=== PATIENT | male | born 1950 | race Caucasian/White ===

== ENCOUNTER 2018-06-18 15:40 | Inpatient (IN) | payer MEDICARE ==
[2018-06-18] MEDS ORDERED: NS 0.9% 1000 ML* 1,000 ML IV ONE (15:43)
--- NOTE | 2018-06-18 15:46 | ED ---
Neurological HPI - HPI Summary HPI Summary: This patient is a 68 year old M BIBA to [facility] with a chief complaint of 2-3 episodes of slurred speech with R hand weakness beginning at 23:00 last night. His most recent episode was at 14:00 today with resolution of right hand weakness but slurred speech persists. Patient is currently on blood thinners. PMHx of TIAs. - History of Current Complaint Stated Complaint: POSS STROKE Time Seen by Provider: 06/18/18 15:43 Hx Obtained From: Patient Onset/Duration: Started hours ago Timing: Intermittent Episodes Lasting: Onset Severity: Moderate Current Severity: Severe Neurological Deficit Location: RUE Character: Motor Weakness, Impaired Speech Number of Episodes: 3 Frequency: Episodes x___ - 3 Associated Signs and Symptoms: Positive: Weakness, Impaired Speech Related Hx: Coumadin - Allergy/Home Medications Allergies/Adverse Reactions: Allergies Allergy/AdvReac Type Severity Reaction Status Date / Time No Known Allergies Allergy Verified 06/18/18 16:12 Home Medications: Home Medications Aspirin EC TAB* [Ecotrin EC Low Dose 81 MG*] 81 mg PO DAILY 06/18/18 [History Confirmed 06/18/18] Atorvastatin Calcium [Lipitor] 40 mg PO DAILY 06/18/18 [History Confirmed ] Carvedilol TAB* [Coreg TAB*] 6.25 mg PO BID 06/18/18 [History Confirmed 06/18/18 ] Cholecalciferol (Vitamin D3) [Vitamin D3] 2,000 unit PO DAILY 06/18/18 [History Confirmed 06/18/18] Ezetimibe TAB* [Zetia TAB*] 10 mg PO DAILY 06/18/18 [History Confirmed 06/18/18] Fenofibrate(NF) [Tricor(NF)] 48 mg PO DAILY 06/18/18 [History Confirmed 06/18/18 ] Furosemide TAB* [Lasix TAB*] 40 mg PO BID 06/18/18 [History Confirmed 06/18/18] Insulin Glargine,Hum.rec.anlog [Lantus Solostar 5x3 ML PENS] 45 units SUBCUT DAILY 06/18/18 [History Confirmed 06/18/18] Isosorbide Mononitrate ER TAB* [Imdur ER TAB*] 30 mg PO DAILY 06/18/18 [History Confirmed 06/18/18] Sitagliptin Phosphate [Januvia] 50 mg PO DAILY 06/18/18 [History Confirmed 06/18] Warfarin Sodium 7.5 mg PO DAILY 06/18/18 [History Confirmed 06/18/18] hydrALAZINE TAB* [Apresoline TAB*] 25 mg PO BID 06/18/18 [History Confirmed 11/04] metOLazone [Metolazone] 2.5 mg PO DAILY 06/18/18 [History Confirmed 06/18/18] PMH/Surg Hx/FS Hx/Imm Hx Endocrine/Hematology History: Reports: Hx Anticoagulant Therapy Neurological History: Reports: Hx Transient Ischemic Attacks (TIA) Infectious Disease History: No - Family History Known Family History: Positive: Hypertension Review of Systems Negative: Fever Positive: Weakness - right hand, Slurred Speech All Other Systems Reviewed And Are Negative: Yes Physical Exam - Summary Physical Exam Summary: General: well-appearing, no pain distress Skin: warm, color reflects adequate perfusion, dry Head: normal Eyes: EOMI, URI ENT: normal Neck: supple, nontender Respiratory: CTA, breath sounds present Cardiovascular: RRR Abdomen: soft, nontender Bowel: present Musculoskeletal: normal, strength/ROM intact Neurological: sensory/motor intact, A&O x3, slurred speech, no other focal neurological deficits Psychological: affect/mood appropriate Triage Information Reviewed: Yes Vital Signs Reviewed: Yes - Timo Coma Scale Best Eye Response: 4 - Spontaneous Best Motor Response: 6 - Obeys Commands Best Verbal Response: 5 - Oriented Coma Scale Total: 15 Diagnostics - Laboratory Result Diagrams: 06/18/18 15:57 06/18/18 15:57 Lab Statement: Any lab studies that have been ordered have been reviewed, and results considered in the medical decision making process. - Radiology CXR Radiology Interpretation Completed By: Radiologist - Cardiomegaly without evidence for pulmonary edema or other acute intrathoracic process. ED Physician has reviewed this report. - CT Brain CT CT Interpretation Completed By: Radiologist - #. Intra-axial acute or subacute hematoma at the LEFT frontal lobe with mild regional mass effect without subfalcine or downward herniation. #. Old infarct involving the RIGHT middle cerebral artery distribution. #. Chronic small vessel ischemic disease. #. Involutional change. #. Results discussed with Dr. Joiner 06/18/2018 3:58 PM EDT ED Physician has reviewed this report. 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: Both Correctly Best Gaze (Only Horizontal Eye Movement): Normal Visual Field Testing: No Visual Loss Facial Paresis-Pt to Smile & Close Eyes or Grimace Symmetry: Normal/Symmetrical Motor Function - Right Arm: No Drift-Holds 10 Seconds Motor Function - Left Arm: No Drift-Holds 10 Seconds Motor Function - Right Leg: No Drift-Holds 10 Seconds Motor Function - Left Leg: No Drift-Holds 10 Seconds Limb Ataxia-Must be out of Proportion to Weakness Present: Absent Sensory (Use Pinprick to Test Arms/Legs/Trunk/Face): Normal Best Language (Describe Picture, Name Items): No Aphasia Dysarthria (Read Several Words): Slurs Some Words Extinction and Inattention: No Abnormality Total Score: 1 Course/Dx - Course Course Of Treatment: DISCUSSED WITH DR SELLERS, NEUROLOGY, AND NEUROSURGERY, DR FOWLER. COUMADIN REVERSED. ADMIT HOSPITALIST. - Diagnoses Provider Diagnoses: Hemorrhagic stroke During the Visit The Following Alert/Code Occurred: Code [place]appas - at 1543 - Physician Notifications Discussed Care Of Patient With: Hung Sellers - neurolgoy Time Discussed With Above Provider: 16:12 Instructed by Provider To: Other - recommends consult with Dr. Fowler. He will see in ED. At 1645, after evaluation. Dr. Sellers recommends MRA of the Head and a Head CT with and without contrast. - Critical Care Time Critical Care Time: 30-74 min Discharge - Sign-Out/Discharge Documenting (check all that apply): Patient Departure All imaging exams completed and their final reports reviewed: Yes - Discharge Plan Condition: Guarded Disposition: ADMITTED TO [facility] - Billing Disposition and Condition Condition: GUARDED Disposition: Admitted to [facility] - Attestation Statements Document Initiated by Scribe: Yes Documenting Scribe: Shabnam Kasper Provider For Whom Scribe is Documenting (Include Credential): Omar Joiner Scribe Attestation: Shabnam Monzon, scribed for Omar Joiner on 06/18/18 at 1902. Scribe Documentation Reviewed: Yes Provider Attestation: The documentation as recorded by the scribe, Shabnam Kasper accurately reflects the service I personally performed and the decisions made by me, Omar Joiner Consult Consult: At 17:00 Dr. Fowler, neurosurgery, recommends admission by hospitalist. At 17:40 Dr. Sandoval, hospitalist, agrees to admit.
--- NOTE | 2018-06-18 15:59 | RAD ---
Indication: RIGHT side facial droop /weakness. Few episodes in past 24 hours. Comparison: No relevant prior exams available on the [facility] PACS for comparison. Technique: Noncontrast CT vertex of skull through foramen magnum. Report: 2.4 x 2.3 cm hyperdense intra-axial hematoma at the posterior LEFT frontal lobe waters matter white matter junction with mild surrounding white matter edema and localized sulcal effacement. Negative for additional intra-axial or extra-axial hemorrhage. Large region of encephalomalacia at the posterior RIGHT temporal lobe extending into the posterior RIGHT frontal and parietal lobes. Decreased density in the periventricular and subcortical white matter while non-specific is most likely due to chronic microangiopathy. Generalized moderate prominence of the cerebral sulci reflecting atrophy. Unremarkable ventricles and basal cisterns. Negative for midline shift. Unremarkable visualized orbital contents. No suspicious calvarial or skull base lesion evident. Clear visualized paranasal sinuses and mastoid air spaces. Negative for scalp hematoma. IMPRESSION: #. Intra-axial acute or subacute hematoma at the LEFT frontal lobe with mild regional mass effect without subfalcine or downward herniation. #. Old infarct involving the RIGHT middle cerebral artery distribution. #. Chronic small vessel ischemic disease. #. Involutional change. #. Results discussed with Dr. Joiner 06/18/2018 3:58 PM EDT
[2018-06-18 16:08] LABS: ABS Basophils 0.1 10^3/ul (0-0.2); ABS Eosinophils 0.6 10^3/ul (0-0.6); ABS Lymphocytes 1.3 10^3/ul (1.0-4.8); ABS Monocytes 0.9 10^3/ul (0-0.8); ABS Neutrophils 9.9 10^3/ul (1.5-7.7); ABS Nucleated RBC 0 10^3/ul; Eosinophil % 4.6 % (0-6); Hematocrit 35 % (42-52); Hemoglobin 12.2 g/dl (14.0-18.0); Lymphocyte % 9.8 % (25-47); Mean Corpuscular HGB Conc 34 g/dl (31-36); Mean Corpuscular Hemoglobin 30 pg (27-31); Mean Corpuscular Volume 88 fL (80-94); Mean Platelet Volume 10.1 um3 (7.4-10.4); Nucleated Red Blood Cells % 0; Platelet Count 182 10^3/ul (150-450); Red Blood Count 4.03 10^6/ul (4.00-5.40); Red Cell Distribution Width 15 % (10.5-15); White Blood Count 12.7 10^3/ul (3.5-10.8)
[2018-06-18 16:12] LABS: INR 1.91 (0.77-1.02)
[2018-06-18] MEDS ORDERED: Phytonadione IV (Adult)* 10 MG in NS 0.9% 50 ML* 50 ML IV ONE (16:19)
[2018-06-18 16:24] LABS: EGFR Non-African American 17.7 (>60)
[2018-06-18] MEDS ORDERED: levETIRAcetam IV* 500 MG in NS 0.9% 100 ML* 100 ML IVPB ONE (16:45)
[2018-06-18] MEDS: NS 0.9% 1000 ML* 1,000 ML IV SCH ×3 (16:46→22:21)
--- NOTE | 2018-06-18 16:46 | RAD ---
Indication: Neurologic changes. Code waters. Comparison: No relevant prior exams available on the [facility] PACS for comparison. Technique: Upright AP 1613 hours Report: Mild prominence of the interstitial markings. No focal pulmonary lesion, pulmonary infiltrate, pleural effusion, or pneumothorax. Cardiomegaly. Unremarkable central pulmonary vasculature and mediastinal contours. Healed RIGHT eighth rib fracture posteriorly. IMPRESSION: #. Cardiomegaly without evidence for pulmonary edema or other acute intrathoracic process.
[2018-06-18] MEDS ORDERED: Nicotine Inhaler* 10 MG AMP INH PRN (18:24)
--- NOTE | 2018-06-18 18:29 | CONS ---
CONSULTATION REPORT: DATE OF CONSULT: 06/18/18 PATIENT OF: Dr. 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 SOURCE OF INFORMATION: We have limited records here and the history is from the ED provider and we are in the process of getting outside records if possible today. HISTORY OF PRESENT ILLNESS: This is a 68-year-old right-handed man, who notes that in the past 2 weeks or so he has had some stiffness in his right hand mainly the first 3 fingers and last night he developed some weakness and clumsiness in the right hand and then has had speech problems since then that have been fluctuating, but persisting with worsening right hand weakness. He is not worse this afternoon than this morning. He has had a past history of stroke also with right-sided symptoms, not left-sided symptoms apparently and this was thought to be due to atrial dilatation. He has been on Coumadin. He did not think he had atrial fibrillation, but we do not have the old chart. He has a history of hypertension, elevated cholesterol. He is on an antihypertensive, he does not know the name. He is on Lipitor and he is on Coumadin. Of note, he has smoked for many years initially 2 packs a day and more recently he did not remember when the switch was. He is now smoking 1 pack a day. He has had no staring spells or confusion with this. He has had some minor word-finding difficulty, but the main problem is some slurring of his speech. PAST SURGICAL HISTORY: He has had no surgeries. ALLERGIES: He has no known allergies. FAMILY HISTORY: Noncontributory. SOCIAL HISTORY: He also smokes marijuana on occasion. REVIEW OF SYSTEMS: Review of systems is negative in all 14 spheres other than HPI. PHYSICAL EXAM: 112/93, pulse was 65, respirations 20. Fever was not documented. On exam, he was alert and oriented. He spoke in complete sentences and can name objects. Occasionally, he hesitated for words. His speech was somewhat slurred. He was oriented x3. Cranial nerves II through XII showed a mild right facial weakness, otherwise intact. Discs were sharp. Motor exam revealed trace weakness in the right upper extremity, full strength in the right lower extremity, full strength on the left side. He had a right pronator drift. He had some clumsiness on the left side. Sensation decreased on the right side to touch. He had no right field cut. Chest: Clear. Cardiovascular: Regular rate and rhythm. Abdomen is soft with positive bowel sounds. DIAGNOSTIC STUDIES/LAB DATA: I reviewed his CT scan, which showed a left frontal lobe acute or subacute hemorrhage. It appeared to be spherical with some homogeneity to it. There is some mild mass effect, but no herniation or midline shift. He also had white matter disease in the area in his parietal lobe with hypodensity extending to the cortex. He has had some mild atrophy. Labs are pending at this point. He has had no staring spells or any seizures. IMPRESSION AND PLAN: Discussed with Mr. Dong and Dr. Joiner that he sustained a left frontal hemorrhage, which could totally be from his being on Coumadin. It was apparently a fall, but it sounds like he was symptomatic before that and it also sounds like this may have dated back a couple of weeks because his fingers were stiff and changed before his other symptoms. I have recommended an MRI scan with and without contrast because his lesion is spherical, so this could have been even bleeding into a tumor and there is an area on the other side, which could be due to white matter disease, but instead it could also be due to a tumor without hemorrhage, but with some surrounding edema that may be seen best on MRI scan with contrast. The heterogeneity in the cervical area could instead be secondary to an arteriovenous malformation, so we will be getting an MRA with that. More acutely, his Coumadin is being reversed by Dr. Joiner and his beginning on Keppra 500 twice a day even though there have been no seizures, he is at risk of seizures from this lesion acutely and so we will have him on Keppra. Most importantly, there has been a page already in to Dr. Gaming and Dr. Gaming will make a decision whether he feels neurosurgically it is appropriate to keep him here to the ICU or transfer him at this point. The lesion is not large. I defer to Dr. Gaming in terms of when the next CAT scan will be, but one should be done at least by tomorrow if he stays here. Thank you for sharing his case. [id number]/[facility] #: [id number] [facility] MEDICAL CENTERDianna
[2018-06-18] MEDS ORDERED: levETIRAcetam 500 MG IVPREMIX* 500 MG/100 ML BAG IVPB ONE (19:00)
[2018-06-18] MEDS: levETIRAcetam 500 MG IVPREMIX* 500 MG/100 ML BAG IV SCH (19:38)
[2018-06-18] MEDS ORDERED: hydrALAZINE IV* 20 MG/ML VIAL IV SLOW PU PRN (19:40)
[2018-06-18] MEDS: Mouth Piece, Nicotine* 1 EACH CARTRIDGE INH PRN (19:42)
[2018-06-18] MEDS ORDERED: Dextrose 50% Syringe 50 ML* 25 GM/50 ML SYRINGE IV PUSH PRN (19:48)
--- NOTE | 2018-06-18 20:40 | RAD ---
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 Pt is uncomfortable in scanner, best attempt to get pt comfortable and to limit motion on scans Facility exam id and description: Mr mrahead wo mra head w/o TECHNIQUE: Magnetic resonance angiography images of the head without intravenous contrast. COMPARISON: No relevant prior studies available. FINDINGS: Right internal carotid artery: There is non-visualization of the right internal carotid artery, consistent with occlusion. No aneurysm. 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 No occlusion or significant stenosis. No aneurysm. Right middle cerebral artery: There is significant decreased signal intensity involving the right middle cerebral artery, consistent with decreased blood flow. No occlusion. No aneurysm. Right posterior cerebral artery: There is mild stenosis of the right posterior cerebral artery. There is focal ectasia or aneurysmal dilatation at the junction of the right P1 and P2 segments. This measures 0.3 cm in diameter. Right vertebral artery: There is non-visualization of the distal right vertebral artery, consistent with occlusion. Left internal carotid artery: No acute findings. Intracranial segment is patent with no significant stenosis. No aneurysm. Left anterior cerebral artery: No occlusion or significant stenosis. No aneurysm. Left middle cerebral artery: No occlusion or significant stenosis. No aneurysm. Left posterior cerebral artery: No occlusion or significant stenosis. No aneurysm. Left vertebral artery: No occlusion or significant stenosis. Basilar artery: No occlusion or significant stenosis. No aneurysm. IMPRESSION: 1. 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 2. There is non-visualization of the distal right vertebral artery, consistent with occlusion. 3. There is mild stenosis of the right posterior cerebral artery. There is focal ectasia or aneurysmal dilatation at the junction of the right P1 and P2 segments. This measures 0.3 cm in diameter. 4. There is significant decreased signal intensity involving the right middle cerebral artery, consistent with decreased blood flow. 5. 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
--- NOTE | 2018-06-18 20:59 | RAD ---
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 COMPARISON: A comparison is made to a CT head report from 06/18/18. No prior images are available for review. FINDINGS: Artifacts: Motion artifact limits this study. Motion artifact limits evaluation of the orbits. Brain: Within the left frontoparietal region, there is a mass of heterogeneous T2 signal intensity measuring 2.5 x 2.4 x 2.6 cm. This demonstrates magnetic susceptibility and is consistent with hematoma described on the recent head CT. There is mild surrounding edema. Additional hemorrhagic pathology cannot be excluded. There is a restricted diffusion are associated with this hematoma. There is mass effect on the adjacent sulci. T2 hyperintense encephalomalacia with adjacent FLAIR hyperintense gliosis are identified within the right posterior parietal and temporal lobes, consistent with an old infarct. A cavum septum pellucidum variant is identified. Additional magnetic susceptibility hemosiderin is identified within the right posterior parietal, posterior temporal and occipital lobes in the area of old infarction. Additional small chronic infarcts are visualized seen within the right parietal and occipital lobes. There are multiple additional foci of high FLAIR signal intensity within the cerebral white matter. There is no mass effect or restricted diffusion associated with these foci. In a patient this age, this likely represents chronic small vessel ischemic disease. Ventricles: There is mild prominence of the ventricles and remaining sulci, compatible with atrophy. Bones/joints: No acute abnormality. Sinuses: A small mucous retention cyst or polyp is visualized within the right maxillary sinus, with minimal mucosal thickening. There is mild polypoid mucosal thickening in the right posterior ethmoid air cell. Mastoid air cells: Mild mucosal thickening/effusions are visualized within the right mastoid air cells. Orbits: There is mild left proptosis. Internal carotid arteries: There is loss of normal flow void within the distal right vertebral and right internal carotid arteries, consistent with occlusion when correlated with the MRA from the same day. IMPRESSION: 1. Within the left frontoparietal region, there is a hematoma or hemorrhagic mass, with mild surrounding edema. There is mass effect on the adjacent sulci. This can be further evaluated with post contrast sequences. 2. Encephalomalacia with adjacent gliosis are identified within the right posterior parietal and temporal lobes, consistent with an old infarct. Additional small chronic infarcts are visualized seen within the right parietal and occipital lobes. 3. Mild atrophy. 4. Additional magnetic susceptibility hemosiderin is identified within the right posterior parietal, posterior temporal and occipital lobes in the area of old infarction. 5. There is loss of normal flow void within the distal right vertebral and right internal carotid arteries, consistent with occlusion when correlated with the MRA from the same day. 6. There are multiple additional foci of high FLAIR signal intensity within the cerebral white matter. In a patient this age, this likely represents chronic small vessel ischemic disease. 7. Additional findings described above.
[2018-06-18] MEDS ORDERED: Carvedilol TAB* 6.25 MG PO SCH (21:00)
[2018-06-18] MEDS ORDERED: Furosemide TAB* 40 MG PO SCH (21:00)
[2018-06-18] MEDS: hydrALAZINE TAB* 25 MG PO SCH (21:35)
[2018-06-18] MEDS: Nicotine PATCH 21 MG/24 HR* PATCH TRANSDERM SCH (21:35)
[2018-06-18 21:50] LABS: INR 1.18 (0.77-1.02)
--- NOTE | 2018-06-18 23:30 | HP ---
CC: Dr. Guadalupe with [facility] in [place]; Dr. Hung Sellers * HISTORY AND PHYSICAL: DATE OF ADMISSION: 06/18/18 PRIMARY CARE PROVIDER: Dr. Guadalupe, with [facility] in [place]. ATTENDING PHYSICIAN: Karla Sandoval DO * (dictated by Edna Cooper, AMANDA) CHIEF COMPLAINT: Slurred speech, right-sided weakness. HISTORY OF PRESENT ILLNESS: Mr. Dong is a 68-year-old male with past medical history significant for TIA, diabetes, chronic kidney disease, AAA, NSTEMI, peripheral vascular disease, atrial fibrillation, chronic combined systolic, diastolic CHF, coronary artery disease, bladder cancer, hypertension, hyperlipidemia, NINA with BiPAP, cardiomyopathy, and pulmonary hypertension who states that he has been in his usual state of health with the exception of noting slurred speech last evening in addition to right-sided weakness. The patient's right-sided weakness resolved and he continued to have slurred speech. Last night, he was resistant to coming to the ER, but today his was able to convince him to come to the ER for further evaluation. He denies any recent fevers, chills, chest pain, shortness of breath, nausea, vomiting, diarrhea, lightheadedness, dizziness, headaches, urinary symptoms. The patient is on warfarin, he states he is unware of a history of AFib, but according to the problem list that his has from [place], he does have a history of AFib. Due to his symptoms, he presented to the emergency room for further evaluation. While in the emergency room, the patient had labs remarkable for an EKG showing AFlutter, LVH, rate 63, there is no acute signs of ischemia, there are no previous EKGs for comparison. Chest x-ray showing no acute findings. He had a brain CT with read as follows "intra-axonal acute or subacute hematoma at the left frontal lobe with mild regional mass effect without subfalcine or downward herniation. 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 Chronic small vessel ischemic disease. Involutional change". Due to the finding of a brain bleed, he received vitamin K and Kcentra in the ER. He was also seen in consultation by Dr. Sellers with neurology who recommended an MRI, starting him on Keppra for seizure prophylaxis as he is at an increased risk for seizures. He also recommended discussing the case with Neurosurgery, Dr. Gaming as the area on CT imaging could represent a lesion. The patient continued to have some difficulties with the speech while in the emergency room. Dr. Gaming was contacted by the ED provider who recommended that that patient be admitted by the hospitalists. The hospitalists were asked to evaluate the patient for admission. PAST MEDICAL HISTORY: 1. TIA. 2. Diabetes mellitus. 3. Chronic kidney disease, stage 3. 4. AAA. 5. NSTEMI. 6. Peripheral vascular disease. 7. Atrial fibrillation. 8. Combined chronic systolic/diastolic congestive heart failure. 9. Coronary artery disease. 10. Bladder cancer. 11. Hypertension. 12. Hyperlipidemia. 13. Obstructive sleep apnea with BiPAP. 14. Cardiomyopathy. 15. Pulmonary hypertension. PAST SURGICAL HISTORY: Status post transurethral bladder resection. MEDICATIONS: Home medications include: 1. Lantus 45 units subcutaneous daily. 2. Vitamin D3 2000 units oral daily. 3. TriCor 48 mg oral daily. 4. Aspirin 81 mg daily. 7. Atorvastatin 40 mg oral daily. 8. Furosemide 40 mg oral twice daily. 9. Imdur 30 mg oral daily. 10. Carvedilol 6.25 mg oral daily. 11. Januvia 50 mg oral daily. 12. Metolazone 2.5 mg oral daily. 13. Hydralazine 25 mg oral twice daily. 14. Warfarin 7.5 mg oral daily. 15. Zetia 10 mg oral daily. ALLERGIES: No known drug allergies. FAMILY HISTORY: The patient denies any family history of coronary artery disease or cancer. He has a sister and a nephew with a history of diabetes mellitus. SOCIAL HISTORY: He is a current smoker, smoking one and a half packs a day. He smoked since age 12 and smoked up to 2 packs a day. He drinks alcohol twice weekly. He occasionally smokes marijuana. He lives with his . His , Marlin Dong, will be his surrogate decision maker in the event he is unable to make decisions for himself. REVIEW OF SYSTEMS: I performed an 11-point review of systems. All the pertinent positives and negatives are mentioned in the history of present illness. The remaining review of systems is negative. PHYSICAL EXAMINATION GENERAL APPEARANCE: The patient is alert, pleasant, appears to be in no acute distress. VITAL SIGNS: Temperature 98.7, heart rate 72, respiratory rate 23, O2 sat 95% on room air, blood pressure 153/83. HEENT: Normocephalic, atraumatic. Pupils are equal and reactive to light. Extraocular movements are intact. RESPIRATORY: There is no accessory muscle use. The lungs are clear to auscultation, bilateral. CARDIOVASCULAR: Regular rate and rhythm. S1, S2 present. There are no murmurs , rubs, or gallops heard. ABDOMEN: Soft, nontender, nondistended. Bowel sounds present x4. EXTREMITIES: No lower extremity edema. DP and PT pulses are 2+ and symmetric. NEUROLOGICAL: The patient is alert and oriented x4. Cranial nerves II through XII are grossly intact. He has mild slurred speech. Equal hand snailer. Equal dorsi and plantar flexion bilateral. Smile is symmetric and tongue is midline. He is able to perform heel from ankle to knee bilateral without difficulty and finger to nose bilateral without difficulty. PSYCHOLOGICAL: The patient is calm and cooperative. SKIN: There are no rashes or abnormalities seen. DIAGNOSTIC STUDIES/LAB DATA: Sodium 138, potassium 3.3, chloride 95, CO2 of 32 , BUN 58, creatinine 3.46, glucose 231. White blood cell count 12.7, hemoglobin 12.3, hematocrit 35, platelet count 182. EKG shows an atrial fibrillation, LVH with a rate of 63, there are no acute signs of ischemia, there are no previous EKGs for comparison. Chest x-ray from today. Radiologist's impression, cardiology without evidence for pulmonary edema or intrathoracic process. Brain CT from today. Radiologist's impression, intra-axonal acute or subacute hematoma at the left frontal lobe with mild regional mass effect without subfalcine or downward herniation. 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 Chronic small vessel ischemic disease. Involutional change. IMPRESSION: Mr. Dong is a 68-year-old male with past medical history significant for TIA; diabetes; chronic kidney disease, stage 3; abdominal aortic aneurysm; NSTEMI; PVD; atrial fibrillation; combined systolic, diastolic CHF; CAD; bladder cancer; hypertension; hyperlipidemia; NINA with BiPAP; cardiomyopathy; pulmonary hypertension, who presents to the emergency room with complaints of slurred speech, right-sided weakness. He was found to have a brain bleed on CT. He will be admitted as an inpatient to the ICU for a brain bleed. ASSESSMENT AND PLAN: 1. Brain bleed. Suspected hemorrhagic cerebrovascular accident vs hemorrhage into a lesion. The patient has evidence of an "acute or subacute hematoma at the left frontal lobe with mild regional mass effect without subfalcine or downward herniation" seen on brain CT today. He has already been seen in consultation by Neurology who recommends he have an MRI and MRA of his head. Additionally, the ER has been in contact with Dr. Gaming, who recommends he be admitted. He will be monitored in ICU, with neuro checks q.2 hours. He has been placed on Keppra per Neurology for seizure prophylaxis. Neurosurgery will see the patient in consultation. We will attempt to keep his systolic blood pressures less than 165. He will be continued on his routine BP medications with hydralazine IV as needed. He will have PT/OT consult. We will keep his head of bed at 30 degrees and keep him NPO for now. He will need a swallow eval prior to having food. At this time his only neurological deficits are slurred speech. I will hold off on an echo at this time. He received Vit K and Kcentra while in the ED, I will recheck an INR. We will continue to give Vit K until his INR near 1. 2. Elevated troponin. The patient denies any chest pain. I suspect demand ischemia in the setting of a brain bleed. I am unsure what his baseline is troponin is in the setting of CKD. We are going to trend his troponins, and monitor him on telemetry. He has no ischemic changes on EKG. He may benefit from a cardiac stress test once he recovers from the brain bleed. 3. Diabetes mellitus. We will get a hemoglobin A1c. I will continue him on Lantus on a decreased dose as he is going to be NPO overnight, until he can have a swallow eval. We will place him on a lispro sliding scale and hold his home oral agents. 4. Chronic combined diastolic, systolic heart failure. No signs of an acute exacerbation at this time. He will be continued on carvedilol. I am going to hold his furosemide and metolazone and recheck his creatinine in the AM. He will have strict I+O's and daily weights. 5. Coronary artery disease. Denies chest pain at this time. He will be continued on his home Imdur, carvedilol, atorvastatin, Zetia, and TriCor. We are going to hold his aspirin in the setting of a brain bleed. 6. Chronic kidney disease, suspect acute on chronic kidney injury. According to the [place] records, he has stage 3 at baseline. I suspect his creatinine may be elevated. We will recheck his labs in the morning, adjust medications accordingly. Avoid nephrotoxic agents. I am going to hold his furosemide and metolazone. 7. Hypertension. The patient will be continued on his home Imdur, and Coreg. We will hold his diuretics in the setting of an elevated creatinine. He will have hydralazine IV as needed for SBP greater than 165. 8. Obstructive sleep apnea. He will be continued on his home BiPAP. 9. Cardiomyopathy. The patient will be continued on his home medication regimen. 10. Tobacco abuse disorder. He has been encouraged to stop smoking. We will provide him with Nicotine replacement. 11. Fluids, electrolytes, and nutrition. The patient will be on n.p.o. until he is able to do a swallow eval. 12. Code status. Full code. 13. DVT prophylaxis. He will have SCDs. He will have no chemical DVT prophylaxis in the setting of a brain bleed. 14. Disposition. Inpatient. TIME SPENT: Time for this admission was approximately 60 minutes, greater than half of that was spent with the patient discussing medications, past medical history, the events leading up to his arrival today, performing a physical examination. The case has been reviewed with the attending, Dr. Sandoval, who agrees with the plan of care. Reviewed by ALKA LUNA 06/19/18 1950 [id number]/[facility] #: [id number] EDA
[2018-06-19] MEDS: NS 0.9% 1000 ML* 1,000 ML IV SCH ×2 (04:22→21:36)
[2018-06-19 05:19] LABS: Hematocrit 31 % (42-52); Hemoglobin 10.6 g/dl (14.0-18.0); Mean Corpuscular HGB Conc 34 g/dl (31-36); Mean Corpuscular Hemoglobin 31 pg (27-31); Mean Corpuscular Volume 90 fL (80-94); Platelet Count 124 10^3/ul (150-450); Red Blood Count 3.46 10^6/ul (4.00-5.40); Red Cell Distribution Width 15 % (10.5-15); White Blood Count 10.3 10^3/ul (3.5-10.8)
[2018-06-19 05:24] LABS: INR 1.1 (0.77-1.02)
[2018-06-19 05:29] LABS: ABS Basophils 0.1 10^3/ul (0-0.2); ABS Eosinophils 0.6 10^3/ul (0-0.6); ABS Lymphocytes 1.4 10^3/ul (1.0-4.8); ABS Monocytes 0.8 10^3/ul (0-0.8); ABS Neutrophils 7.5 10^3/ul (1.5-7.7); ABS Nucleated RBC 0 10^3/ul; Eosinophil % 5.6 % (0-6); Lymphocyte % 13.5 % (25-47); Nucleated Red Blood Cells % 0
[2018-06-19 05:35] LABS: EGFR Non-African American 19.5 (>60)
[2018-06-19] MEDS: Insulin LISPRO* 1 UNITS UNIT SUBCUT SCH ×3 (07:30→18:26)
[2018-06-19] MEDS ORDERED: Insulin GLARGINE(*) 1 UNITS UNIT SUBCUT SCH (08:00)
--- NOTE | 2018-06-19 08:34 | RAD ---
INDICATION: Evaluate intraparenchymal hemorrhage. COMPARISON: CT the brain June 18, 2018 that shows a focus of hemorrhage at the left parietal lobe. TECHNIQUE: Contiguous axial sections of the brain were obtained from the skull base to the vertex without contrast. FINDINGS: The ventricles, cisterns and sulci are within normal limits. Again seen is a hyperattenuating focus at the left parietal lobe measuring 2.4 x 2.6 cm in the axial plane unchanged from the previous CT examination. There is no significant mass effect. There is a stable area of encephalomalacia at the right temporal lobe. There is mild periventricular and subcortical white matter hypoattenuation most consistent with chronic microvascular disease. No significant focal osseous abnormality is present. The visualized portion of the paranasal sinuses appear clear. The mastoid air cells are well aerated bilaterally. IMPRESSION: Stable focus of intraparenchymal hemorrhage at the left parietal lobe not significantly changed since the previous head CT acquired June 18, 2018.
--- NOTE | 2018-06-19 08:50 | PN ---
Subjective Date of Service: 06/19/18 Interval History: Patient states that his speech is still a little slurred but better than yesterday. No other neuro sx's. No other c/o. Objective Active Medications: Atorvastatin Calcium (Lipitor*) 40 mg PO DAILY [facility] Device (Nicotine Mouth Piece*) 1 each INH .USE WITH NICOTROL PRN PRN Reason: CRAVING Last Admin: 06/18/18 19:42 Dose: 1 each Dextrose (D50w Syringe 50 Ml*) 12.5 gm IV PUSH .FOR FS < 60 - SS PRN PRN Reason: FS < 60 Ezetimibe (Zetia Tab*) 10 mg PO DAILY [facility] Fenofibrate (Tricor(Nf)) 48 mg PO DAILY [facility] Hydralazine HCl (Apresoline Iv*) 5 mg IV SLOW PU Q6H PRN PRN Reason: Systolic Bp Greater Than: 165 Hydralazine HCl (Apresoline Tab*) 25 mg PO BID [facility] Last Admin: 06/18/18 21:35 Dose: 25 mg Levetiracetam (Keppra Iv Premix*) 500 mg in 100 mls @ 400 mls/hr IV Q12H [facility] Last Admin: 06/18/18 19:38 Dose: 400 mls/hr Sodium Chloride (Ns 0.9% 1000 Ml*) 1,000 mls @ 60 mls/hr IV .PER RATE [facility] Last Admin: 06/19/18 04:22 Dose: 60 mls/hr Insulin Glargine (Lantus(*)) 20 units SUBCUT Q24H [facility] Insulin Human Lispro (Humalog*) 0 - 10 units SUBCUT AC [facility]; Protocol Isosorbide Mononitrate (Imdur Er Tab*) 30 mg PO DAILY [facility] Nicotine (Nicotine Inhaler*) 10 mg INH Q2H PRN PRN Reason: CRAVING Last Admin: 06/18/18 19:42 Dose: 10 mg Nicotine (Nicotine Patch 21 Mg/24 Hr*) 1 patch TRANSDERM 2030 [facility] Last Admin: 06/18/18 21:35 Dose: 1 patch Pharmacy Profile Note (Nicotine Patch Removal Note*) 1 note PATCH OFF 2100 [facility] Vital Signs - 8 hr 06/19/18 06/19/18 06/19/18 01:00 01:30 02:00 Temperature Pulse Rate 58 43 61 Respiratory 14 25 23 Rate Blood Pressure 144/68 134/60 134/69 (mmHg) O2 Sat by Pulse 94 94 92 Oximetry 06/19/18 06/19/18 06/19/18 02:31 03:00 03:01 Temperature Pulse Rate 59 49 56 Respiratory 19 18 22 Rate Blood Pressure 104/53 121/53 (mmHg) O2 Sat by Pulse 88 93 93 Oximetry 06/19/18 06/19/18 06/19/18 03:30 03:31 04:00 Temperature 97.8 F Pulse Rate 53 55 Respiratory 19 23 Rate Blood Pressure 114/53 120/55 (mmHg) O2 Sat by Pulse 95 92 Oximetry 06/19/18 06/19/18 06/19/18 04:32 04:55 05:00 Temperature Pulse Rate 60 41 Respiratory 20 15 14 Rate Blood Pressure 120/55 (mmHg) O2 Sat by Pulse 89 100 Oximetry 06/19/18 06/19/18 06/19/18 05:01 05:30 05:37 Temperature Pulse Rate 53 48 Respiratory 20 18 29 Rate Blood Pressure 142/59 135/62 (mmHg) O2 Sat by Pulse 100 99 Oximetry 06/19/18 06/19/18 06/19/18 06:00 06:01 06:31 Temperature Pulse Rate 61 60 61 Respiratory 17 21 25 Rate Blood Pressure 142/66 143/57 (mmHg) O2 Sat by Pulse 87 96 99 Oximetry Oxygen Devices in Use Now: None Appearance: Alert, partly up in ICU bed. In good spirits. Looks comfortable. Eyes: No Scleral Icterus Neck: NL Appearance and Movements; NL JVP, No Thyroid Enlargement, Masses Respiratory: Symmetrical Chest Expansion and Respiratory Effort, Clear to Percussion, - - mild rhonchi BL Cardiovascular: NL Sounds; No Murmurs; No JVD, RRR, No Edema, - Extremities: No Edema, No Clubbing, Cyanosis, - Skin: No Rash or Ulcers, No Nodules or Sclerosis, - Neurological: Alert and Oriented x 3, NL Sensation - Speech mildly slurred. Hand federal mediation commissioner 5/5 BL. No tremor. Result Diagrams: 06/19/18 05:00 06/19/18 05:00 Microbiology and Other Data: Microbiology 06/18/18 19:30 Nasal Screen MRSA (PCR) - Final Nasal Mrsa Not Detected Assess/Plan/Problems-Billing Assessment: - Patient Problems (1) ICB (intracranial bleed) Current Visit: Yes Status: Acute Code(s): I62.9 - NONTRAUMATIC INTRACRANIAL HEMORRHAGE, UNSPECIFIED SNOMED Code(s): 8159310 Comment: L frontal lobe. Mild slurring of speech. INR 1.10 06/19. PT/OT/ST eval pending. Dr. Gaming to consult. Continue prophylactic levetriacetam. (2) Atrial fibrillation Current Visit: Yes Status: Acute Code(s): I48.91 - UNSPECIFIED ATRIAL FIBRILLATION SNOMED Code(s): 33702713 Comment: Warfarin reversed due to ICB. Carvedilol last dose 06/18 21:35 hrs, d /c'd. 6.5 sec pause noted 06/19 about 7:30 AM. (3) Diabetes Current Visit: Yes Status: Acute Code(s): E11.9 - TYPE 2 DIABETES MELLITUS WITHOUT COMPLICATIONS SNOMED Code(s): 49180904 Comment: Start Lantus 30 U q AM 06/19; takes it about 6 AM at home. Lispro by SS. A1C pending. (4) CAD (coronary artery disease) Current Visit: Yes Status: Acute Code(s): I25.10 - ATHSCL HEART DISEASE OF [place] CORONARY ARTERY W/O ANG PCTRS SNOMED Code(s): 50894250 Comment: Continue statin, nitrate, fenofibrate, ezetimibe. ASA on hold due to ICB. (5) NINA (obstructive sleep apnea) Current Visit: Yes Status: Acute Code(s): G47.33 - OBSTRUCTIVE SLEEP APNEA ( ADULT) (PEDIATRIC) SNOMED Code(s): 30045464 Comment: Continue home CPAP. (6) HTN (hypertension) Current Visit: Yes Status: Acute Code(s): I10 - ESSENTIAL (PRIMARY) HYPERTENSION SNOMED Code(s): 38056137 Comment: Continue home hydralazine dose. (7) CKD (chronic kidney disease) Current Visit: Yes Status: Acute Code(s): N18.9 - CHRONIC KIDNEY DISEASE, UNSPECIFIED SNOMED Code(s): 520087962 Comment: GFR 19.5 06/19. Needs outpt fup with his [facility] cad designer drafter.
[2018-06-19] MEDS ORDERED: Metolazone TAB* 5 MG PO SCH (09:00)
[2018-06-19] MEDS ORDERED: Aspirin EC TAB* 81 MG TAB.EC PO SCH (09:00)
--- NOTE | 2018-06-19 09:08 | PN ---
Progress Note - Progress Note Date of Service: 06/19/18 Note: Additional diagnosis noted: tobacco use disorder. Pt advised to quit smoking and avoid second hand smoke.
[2018-06-19] MEDS: levETIRAcetam 500 MG IVPREMIX* 500 MG/100 ML BAG IV SCH ×2 (09:10→20:21)
[2018-06-19] MEDS: hydrALAZINE TAB* 25 MG PO SCH ×2 (09:40→20:21)
[2018-06-19] MEDS: Isosorbide Mononitrate ER TAB* 30 MG PO SCH (09:40)
[2018-06-19] MEDS: Atorvastatin* 40 MG TAB PO SCH (09:40)
[2018-06-19] MEDS: Insulin GLARGINE(*) 1 UNITS UNIT SUBCUT SCH (09:40)
[2018-06-19] MEDS: FENOFIBRATE 48 MG PO SCH (09:40)
[2018-06-19] MEDS: Ezetimibe TAB* 10 MG PO SCH (09:40)
[2018-06-19] MEDS: Nicotine PATCH 21 MG/24 HR* PATCH TRANSDERM SCH (20:21)
[2018-06-19] MEDS: Nicotine Patch Removal NOTE PATCH OFF SCH (20:25)
--- NOTE | 2018-06-19 22:00 | PN ---
PROGRESS NOTE: DATE OF VISIT: 06/19/18 PATIENT OF: Dr. Becerra and Dr. Gaming. HISTORY: This is a 68-year-old male I am seeing in followup for SURTASS ANALYST bleed. He would like to go home. He still feels a little weak on the right side. His speech is somewhat better and he has no new complaints. He has no headache. MEDICATIONS: Include: 1. Lipitor 40 mg daily. 2. Nicotine mouthpiece p.r.n. craving. 3. Zetia 10 mg daily. 4. TriCor 48 mg daily. 5. 5 mg p.r.n. 6. Hydralazine 25 mg b.i.d. 7. Insulin subcu. 8. Imdur 30 mg daily. 9. Keppra 500 b.i.d. PHYSICAL EXAMINATION: He is afebrile. Pulse 60, respirations 25, blood pressure 143/57. He has had some occasional sinus pauses. He is alert and oriented with speech only slightly clear. It seems better than yesterday and no word finding difficulties. Cranial nerves II through XII are intact. He has minimal right pronator drift but strength was full on the right. Chest: Clear. Cardiovascular: Regular rate and rhythm. Abdomen: Soft. Positive bowel sounds. DIAGNOSTIC STUDIES: I reviewed his MRA/MRI from yesterday and a CT scan from today. His CT scan from today is unchanged. His MRI scan showed the spherical left frontoparietal bleed with some heterogeneity there and some mild edema. There is right posterior parietal encephalomalacia consistent with an old infarct. There is additional hemosiderin within the right posterior parietal and occipital areas. The area of the old infarct is small vessel ischemic disease. 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 Mr. Dong clinically looks better today and there has been no progression of his bleed. His lesion on MRI scan again looks spherical and is heterogeneic, either meaning a sequential bleeding or it is possible that he split into a tumor and he clearly needs a MRI scan with contrast, which has previously been recommended as well. This will be done once the contrast and his MRIs are completed. I deferred to Dr. Becerra in terms of his cardiac arrhythmia whether he can be moved to the floor or not. I would recommend that they maintain good perfusion and address any cardiac issues aggressively, especially given his severe atherosclerotic disease intracranially as documented by his MRA. It would be reasonable to recheck a MRI with contrast once the dye from the MRA has dissipated. Thank you for sharing his case. [id number]/[facility] #: [id number] EDA
[2018-06-20] MEDS: NS 0.9% 1000 ML* 1,000 ML IV SCH (00:59)
[2018-06-20] MEDS: Mouth Piece, Nicotine* 1 EACH CARTRIDGE INH PRN (04:10)
[2018-06-20] MEDS: Insulin LISPRO* 1 UNITS UNIT SUBCUT SCH ×4 (08:25→21:48)
[2018-06-20] MEDS: Isosorbide Mononitrate ER TAB* 30 MG PO SCH (08:26)
[2018-06-20] MEDS: FENOFIBRATE 48 MG PO SCH (08:26)
[2018-06-20] MEDS: hydrALAZINE TAB* 25 MG PO SCH ×2 (08:26→21:49)
[2018-06-20] MEDS: Atorvastatin* 40 MG TAB PO SCH (08:26)
[2018-06-20] MEDS: Insulin GLARGINE(*) 1 UNITS UNIT SUBCUT SCH (08:28)
[2018-06-20] MEDS: levETIRAcetam 500 MG IVPREMIX* 500 MG/100 ML BAG IV SCH (08:35)
--- NOTE | 2018-06-20 11:01 | PN ---
Subjective Date of Service: 06/20/18 Interval History: No new c/o. Speech improved. Anxious to go home. Objective Active Medications: Atorvastatin Calcium (Lipitor*) 40 mg PO DAILY [facility] Last Admin: 06/20/18 08:26 Dose: 40 mg Device (Nicotine Mouth Piece*) 1 each INH .USE WITH NICOTROL PRN PRN Reason: CRAVING Last Admin: 06/20/18 04:10 Dose: 1 each Dextrose (D50w Syringe 50 Ml*) 12.5 gm IV PUSH .FOR FS < 60 - SS PRN PRN Reason: FS < 60 Ezetimibe (Zetia Tab*) 10 mg PO DAILY [facility] Last Admin: 06/19/18 09:40 Dose: 10 mg Fenofibrate (Tricor(Nf)) 48 mg PO DAILY [facility] Last Admin: 06/20/18 08:26 Dose: 48 mg Hydralazine HCl (Apresoline Iv*) 5 mg IV SLOW PU Q6H PRN PRN Reason: Systolic Bp Greater Than: 165 Hydralazine HCl (Apresoline Tab*) 25 mg PO BID [facility] Last Admin: 06/20/18 08:26 Dose: 25 mg Insulin Glargine (Lantus(*)) 30 units SUBCUT Q24H [facility] Last Admin: 06/20/18 08:28 Dose: 30 units Insulin Human Lispro (Humalog*) 0 - 10 units SUBCUT ACHS [facility]; Protocol Last Admin: 06/20/18 08:25 Dose: Not Given Isosorbide Mononitrate (Imdur Er Tab*) 30 mg PO DAILY [facility] Last Admin: 06/20/18 08:26 Dose: 30 mg Levetiracetam (Keppra Tab*) 500 mg PO BID [facility] Nicotine (Nicotine Inhaler*) 10 mg INH Q2H PRN PRN Reason: CRAVING Last Admin: 06/18/18 19:42 Dose: 10 mg Nicotine (Nicotine Patch 21 Mg/24 Hr*) 1 patch TRANSDERM 2030 [facility] Last Admin: 06/19/18 20:21 Dose: 1 patch Pharmacy Profile Note (Nicotine Patch Removal Note*) 1 note PATCH OFF 2100 [facility] Last Admin: 06/19/18 20:25 Dose: 1 note Vital Signs - 8 hr 06/20/18 06/20/18 03:11 08:10 Temperature 97.6 F 98.5 F Pulse Rate 57 63 Respiratory 20 18 Rate Blood Pressure 156/59 168/76 (mmHg) O2 Sat by Pulse 98 98 Oximetry Oxygen Devices in Use Now: None Appearance: Alert, sitting on the edge of his bed. In fair spirits. Looks comfortable. Eyes: No Scleral Icterus Respiratory: Symmetrical Chest Expansion and Respiratory Effort, Clear to Auscultation, Clear to Percussion Cardiovascular: NL Sounds; No Murmurs; No JVD, RRR, No Edema Extremities: No Edema, No Clubbing, Cyanosis, - Skin: No Rash or Ulcers, No Nodules or Sclerosis, - Neurological: Alert and Oriented x 3, NL Sensation Result Diagrams: 06/19/18 05:00 06/19/18 05:00 Microbiology and Other Data: Microbiology 06/18/18 19:30 Nasal Screen MRSA (PCR) - Final Nasal Mrsa Not Detected Assess/Plan/Problems-Billing Assessment: - Patient Problems (1) ICB (intracranial bleed) Current Visit: Yes Status: Acute Code(s): I62.9 - NONTRAUMATIC INTRACRANIAL HEMORRHAGE, UNSPECIFIED SNOMED Code(s): 0650622 Comment: L frontal lobe. Mild slurring of speech. INR 1.10 06/19. PT/OT/ST eval pending. Discussed with Dr. Sellers 06/19, with Dr. Aguayo 06/20. Change to po levetriacetam. MRI with contrast for 06/21 to r/o neoplasm. (2) Atrial fibrillation Current Visit: Yes Status: Acute Code(s): I48.91 - UNSPECIFIED ATRIAL FIBRILLATION SNOMED Code(s): 05022577 Comment: Warfarin reversed due to ICB. Carvedilol last dose 06/18 21:35 hrs, d /c'd. 6.5 sec pause noted 06/19 about 7:30 AM. (3) Diabetes Current Visit: Yes Status: Acute Code(s): E11.9 - TYPE 2 DIABETES MELLITUS WITHOUT COMPLICATIONS SNOMED Code(s): 13828471 Comment: Start Lantus 30 U q AM 06/19; takes it about 6 AM at home. Lispro by SS. A1C pending. (4) CAD (coronary artery disease) Current Visit: Yes Status: Acute Code(s): I25.10 - ATHSCL HEART DISEASE OF [place] CORONARY ARTERY W/O ANG PCTRS SNOMED Code(s): 96239792 Comment: Continue statin, nitrate, fenofibrate, ezetimibe. ASA on hold due to ICB. (5) NINA (obstructive sleep apnea) Current Visit: Yes Status: Acute Code(s): G47.33 - OBSTRUCTIVE SLEEP APNEA ( ADULT) (PEDIATRIC) SNOMED Code(s): 76675502 Comment: Continue home CPAP. (6) HTN (hypertension) Current Visit: Yes Status: Acute Code(s): I10 - ESSENTIAL (PRIMARY) HYPERTENSION SNOMED Code(s): 10917299 Comment: Continue home hydralazine dose. (7) CKD (chronic kidney disease) Current Visit: Yes Status: Acute Code(s): N18.9 - CHRONIC KIDNEY DISEASE, UNSPECIFIED SNOMED Code(s): 874067828 Comment: GFR 19.5 9/2. Needs outpt fup with his [employer] data analytics architect.
[2018-06-20] MEDS: Ezetimibe TAB* 10 MG PO SCH (12:19)
--- NOTE | 2018-06-20 14:34 | PN ---
CC: Dr. Becerra * NEUROLOGY PROGRESS NOTE: DATE OF SERVICE: 06/20/18 PRIMARY PROVIDER: Dr. Becerra. SUBJECTIVE: The patient is a 68-year-old man, who was taking Coumadin for atrial fibrillation, who presented on 06/18/18 with slurred speech. His CT scan showed nontraumatic intracranial hemorrhage. MRI brain without contrast was obtained and showed spherically-shaped left frontoparietal bleed with some heterogeneity and mild edema. Although this appears to be consistent with intracranial hemorrhage, we cannot entirely exclude a hemorrhagic mass. Therefore, an MRI with contrast was recommended. MRA of the head did not show any vascular abnormalities. The patient is resting comfortably today. He is in no acute distress. He denied any headaches or visual disturbance. He wants to go home. MEDICATIONS: 1. Atorvastatin 40 mg. 2. Zetia 10 mg daily. 3. Fenofibrate 48 mg. 4. Hydralazine 25 mg p.o. twice daily as well as hydralazine 5 mg IV push. 5. Insulin. 6. Levetiracetam 500 mg p.o. daily that was started as prophylactic medication. PHYSICAL EXAMINATION: Vitals: Temperature of 98.3, pulse rate of 64, respiratory rate of 18, oxygen saturation of 98%, blood pressure is 146/65. General: Chronically ill-appearing man, in no acute distress. He is resting comfortably. Pupils equal, round, and reactive to light. Extraocular muscles are intact. No facial asymmetry. He is able to move all 4 extremities with 5/ 5 strength, but still has slight right pronator drift. Cardiovascular: Regular rate and rhythm. LABORATORY DATA: WBC 10.3, hemoglobin of 10.6, hematocrit of 31. INR is 1.10. Sodium 139, potassium 3.3, chloride 103. HDL is 23, LDL of 41. ASSESSMENT AND PLAN: Mr. Dong is a 68-year-old man, who has a nontraumatic intraparenchymal hemorrhage, most likely related to Coumadin use. He has not had any seizures. His weakness on the right upper extremity is getting much better. We are waiting for an MRI of the brain with contrast to rule out any hemorrhagic mass. Once we obtain the study, the patient will likely be able to go home. He should not be on any anticoagulation therapy for at least 14-30 days. He will need a repeat CT scan to evaluate for the resolution of the hemorrhage before considering anticoagulation therapy. The concern here is that the patient did not present with an elevated INR and therefore his risk of having recurrent intraparenchymal hemorrhage is high. Therefore, I do think he would be a good candidate for anticoagulation therapy. However, I will defer further management and recommendations to the primary team. I discussed the recommendations with Dr. Becerra. TIME SPENT: Thirty minutes. [id number]/[facility] #: [id number] EDA
--- NOTE | 2018-06-20 16:04 | PN ---
Progress Note - Progress Note Date of Service: 06/20/18 SOAP: Subjective: []Patient seen and examined chart and films reviewed He has a round subcortical lesion which is hemmorhagic in the left parietal area He denies headache Objective: []Neuro intact Films show round subcortical mass Assessment: []Ovoid nature of mass increases chance it could be hemmorhage into neoplasm Discussed with Dr. Sellers who has ordered MRI with contrast Plan: []He needs CT of C/A /P to complete his evaluation If studies negative will suggest repeat imaging of lesion in 6 weeks Full Consult to follow
[2018-06-20] MEDS: Nicotine Patch Removal NOTE PATCH OFF SCH (21:00)
[2018-06-20] MEDS: levETIRAcetam TAB* 500 MG PO SCH (21:49)
[2018-06-20] MEDS: Nicotine PATCH 21 MG/24 HR* PATCH TRANSDERM SCH (21:57)
[2018-06-21 06:19] LABS: ABS Basophils 0 10^3/ul (0-0.2); ABS Eosinophils 0.4 10^3/ul (0-0.6); ABS Lymphocytes 1.1 10^3/ul (1.0-4.8); ABS Monocytes 0.7 10^3/ul (0-0.8); ABS Neutrophils 6.4 10^3/ul (1.5-7.7); ABS Nucleated RBC 0 10^3/ul; Eosinophil % 4.8 % (0-6); Hematocrit 31 % (42-52); Hemoglobin 10.8 g/dl (14.0-18.0); Lymphocyte % 13.1 % (25-47); Mean Corpuscular HGB Conc 35 g/dl (31-36); Mean Corpuscular Hemoglobin 31 pg (27-31); Mean Corpuscular Volume 89 fL (80-94); Mean Platelet Volume 10.1 um3 (7.4-10.4); Nucleated Red Blood Cells % 0; Platelet Count 127 10^3/ul (150-450); Red Blood Count 3.51 10^6/ul (4.00-5.40); Red Cell Distribution Width 15 % (10.5-15); White Blood Count 8.7 10^3/ul (3.5-10.8)
[2018-06-21] MEDS ORDERED: Nicotine Patch Removal NOTE PATCH OFF SCH (08:30)
[2018-06-21] MEDS: Isosorbide Mononitrate ER TAB* 30 MG PO SCH (08:45)
[2018-06-21] MEDS: hydrALAZINE TAB* 25 MG PO SCH (08:45)
[2018-06-21] MEDS: Insulin LISPRO* 1 UNITS UNIT SUBCUT SCH ×2 (08:45→12:32)
[2018-06-21] MEDS: Insulin GLARGINE(*) 1 UNITS UNIT SUBCUT SCH (08:45)
[2018-06-21] MEDS: levETIRAcetam TAB* 500 MG PO SCH (08:45)
[2018-06-21] MEDS: Atorvastatin* 40 MG TAB PO SCH (08:45)
[2018-06-21] MEDS: FENOFIBRATE 48 MG PO SCH (08:48)
--- NOTE | 2018-06-21 08:59 | PN ---
Subjective Date of Service: 06/21/18 Interval History: No c/o. Patient states that he has had bradycardia for many years, heart rates as low as 30, more often when he doesn't use his CPAP at night. Objective Active Medications: Atorvastatin Calcium (Lipitor*) 40 mg PO DAILY [facility] Last Admin: 06/21/18 08:45 Dose: 40 mg Device (Nicotine Mouth Piece*) 1 each INH .USE WITH NICOTROL PRN PRN Reason: CRAVING Last Admin: 06/20/18 04:10 Dose: 1 each Dextrose (D50w Syringe 50 Ml*) 12.5 gm IV PUSH .FOR FS < 60 - SS PRN PRN Reason: FS < 60 Ezetimibe (Zetia Tab*) 10 mg PO DAILY [facility] Last Admin: 06/20/18 12:19 Dose: 10 mg Fenofibrate (Tricor(Nf)) 48 mg PO DAILY [facility] Last Admin: 06/21/18 08:48 Dose: 48 mg Hydralazine HCl (Apresoline Iv*) 5 mg IV SLOW PU Q6H PRN PRN Reason: Systolic Bp Greater Than: 165 Hydralazine HCl (Apresoline Tab*) 25 mg PO BID [facility] Last Admin: 06/21/18 08:45 Dose: 25 mg Insulin Glargine (Lantus(*)) 30 units SUBCUT Q24H [facility] Last Admin: 06/21/18 08:45 Dose: 30 units Insulin Human Lispro (Humalog*) 0 - 10 units SUBCUT ACHS [facility]; Protocol Last Admin: 06/21/18 08:45 Dose: 1 unit Isosorbide Mononitrate (Imdur Er Tab*) 30 mg PO DAILY [facility] Last Admin: 06/21/18 08:45 Dose: 30 mg Levetiracetam (Keppra Tab*) 500 mg PO BID [facility] Last Admin: 06/21/18 08:45 Dose: 500 mg Nicotine (Nicotine Inhaler*) 10 mg INH Q2H PRN PRN Reason: CRAVING Last Admin: 06/18/18 19:42 Dose: 10 mg Nicotine (Nicotine Patch 21 Mg/24 Hr*) 1 patch TRANSDERM 2030 [facility] Last Admin: 06/20/18 21:57 Dose: 1 patch Pharmacy Profile Note (Nicotine Patch Removal Note*) 1 note PATCH OFF 08 [facility] Last Admin: 06/21/18 08:49 Dose: 1 note Vital Signs - 8 hr 06/21/18 08:13 Temperature 98.2 F Pulse Rate 58 Respiratory 18 Rate Blood Pressure 179/76 (mmHg) O2 Sat by Pulse 99 Oximetry Oxygen Devices in Use Now: None Appearance: Alert, standing in his room. In good spirits. Looks comfortable. Extremities: No Edema, No Clubbing, Cyanosis, - Skin: No Rash or Ulcers, No Nodules or Sclerosis, - Neurological: Alert and Oriented x 3, NL Sensation - Speech clear and fluent. [place], gait OK. Result Diagrams: 06/21/18 06:04 06/19/18 05:00 Microbiology and Other Data: Microbiology 06/18/18 19:30 Nasal Screen MRSA (PCR) - Final Nasal Mrsa Not Detected Assess/Plan/Problems-Billing Assessment: - Patient Problems (1) ICB (intracranial bleed) Current Visit: Yes Status: Acute Code(s): I62.9 - NONTRAUMATIC INTRACRANIAL HEMORRHAGE, UNSPECIFIED SNOMED Code(s): 2984014 Comment: L frontal lobe. Mild slurring of speech. INR 1.10 06/19. PT/OT/ST eval pending. Discussed with Dr. Sellers 06/19, with Dr. Aguayo 06/20. Change to po levetriacetam. Cannot have MRI with contrast due to low GFR. Repeat BMP 06/21 ordered to be sure his EGFR is still < 30. CT chest/abd/pelvis with oral contrast only. (2) Atrial fibrillation Current Visit: Yes Status: Acute Code(s): I48.91 - UNSPECIFIED ATRIAL FIBRILLATION SNOMED Code(s): 44257544 Comment: Warfarin reversed due to ICB. Carvedilol last dose 06/18 21:35 hrs, d /c'd. 6.5 sec pause noted 06/19 about 7:30 AM. RR 5.5 sec 1 AM 06/21/18. Discussed with Dr. Pena and Dr. Albarado ([employer] packaging supervisor in [place] [phone]) (3) Diabetes Current Visit: Yes Status: Acute Code(s): E11.9 - TYPE 2 DIABETES MELLITUS WITHOUT COMPLICATIONS SNOMED Code(s): 38729294 Comment: Continue Lantus 30 U q AM; takes 45 U about 6 AM at home. Lispro by SS. A1C 8.6 on 06/18/18. (4) CAD (coronary artery disease) Current Visit: Yes Status: Acute Code(s): I25.10 - ATHSCL HEART DISEASE OF [place] CORONARY ARTERY W/O ANG PCTRS SNOMED Code(s): 90255692 Comment: Continue statin, nitrate, fenofibrate, ezetimibe. ASA on hold due to ICB. (5) NINA (obstructive sleep apnea) Current Visit: Yes Status: Acute Code(s): G47.33 - OBSTRUCTIVE SLEEP APNEA ( ADULT) (PEDIATRIC) SNOMED Code(s): 51353554 Comment: Continue home CPAP. (6) HTN (hypertension) Current Visit: Yes Status: Acute Code(s): I10 - ESSENTIAL (PRIMARY) HYPERTENSION SNOMED Code(s): 50987326 Comment: Continue home hydralazine dose. (7) CKD (chronic kidney disease) Current Visit: Yes Status: Acute Code(s): N18.9 - CHRONIC KIDNEY DISEASE, UNSPECIFIED SNOMED Code(s): 574742593 Comment: GFR 19.5 06/19. 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
[2018-06-21] MEDS: Ezetimibe TAB* 10 MG PO SCH (09:40)
--- NOTE | 2018-06-21 11:47 | PN ---
NEUROLOGY PROGRESS NOTE: DATE OF SERVICE: 06/21/18 PRIMARY PROVIDER: Dr. Ray Becerra. Neurology is following for evidence of ICH. CHIEF COMPLAINT: None. SUBJECTIVE: The patient is resting comfortably. He is in no acute distress. He has no headaches or focal weakness. MEDICATIONS: 1. Atorvastatin. 2. Zetia. 3. TriCor. 4. Hydralazine. 5. Insulin. 6. Imdur. 7. Keppra 500 mg twice daily. REVIEW OF SYSTEMS: He denied any chest pain, shortness of breath, palpitation. PHYSICAL EXAMINATION: Vitals: Temperature 98.2, pulse rate of 58, respiratory rate of 18, oxygen saturation of 99%, blood pressure of 179/76. General: Chronically ill-appearing man, in no acute distress. He is sitting in the chair comfortably. Pupils are equal, round, and reactive to light and extraocular muscles are intact. There is no facial asymmetry. He has 5/5 strength in all 4 extremities. He does not have a pronator drift today. He has been up and ambulating without assistance. ASSESSMENT AND RECOMMENDATIONS: Mr. Dong is a 68-year-old man, who has a nontraumatic intraparenchymal hemorrhage, mostly likely related to Coumadin use , but there is a concern that the patient may have bled into a mass in the left parietal lobe. I reviewed Neurosurgery's consultation, Dr. Gaming. The patient is pending a CT of the chest, abdomen, and pelvis. The patient is unable to undergo any MRI with contrast given his kidney injury and chronic kidney disease. If the imaging studies are negative, I recommend repeat imaging and a close followup with Dr. Gaming. The patient can have repeating imaging in 4-6 weeks. Please do not prescribe the patient any antithrombotic therapy on discharge. Continue Keppra for 3 months and if he has had not any seizures, I will recommend discontinuing the medication. I discussed these recommendations with Dr. Becerra. I do not have any further neurological recommendations. [id number]/[facility] #: [id number] [facility]
[2018-06-21 12:12] LABS: EGFR Non-African American 21.3 (>60)
--- NOTE | 2018-06-21 12:43 | RAD ---
INDICATION: Hemorrhagic CVA. Question metastatic disease. History of bladder cancer. Previous transurethral bladder surgery and hernia repair. COMPARISON: No relevant prior exams available on the [facility] [place] for comparison. TECHNIQUE: Multidetector CT images were obtained from the lung apices to the ischial tuberosities without contrast. Assessment of the viscera limited without IV contrast. Oral contrast administered. CHEST REPORT: Postsurgical or post traumatic defect of the RIGHT eighth rib laterally with associated laxity of the posterolateral inferior thorax with broad neck outpouching of the lung. Mild prominence of interstitial markings in the affected region of the anterior basal segment of the LEFT lower lobe which may represent acute inflammation or chronic fibrosis. Negative for suspicious focal pulmonary lesions or pleural effusions. 2.5 cm short axis RIGHT paratracheal lymph node and adjacent smaller lymph nodes. Negative for cardiomegaly or pericardial effusion. Coronary artery calcifications. Atherosclerotic calcification of normal diameter thoracic aorta. Negative for suspicious thoracic osseous lesions. Multiple healed RIGHT rib fractures. CHEST IMPRESSION: #. Negative for suspicious focal pulmonary lesions. #. RIGHT paratracheal lymphadenopathy. ABDOMEN PELVIS REPORT: LIVER / GALLBLADDER / PANCREAS / SPLEEN: Unremarkable unenhanced liver, gallbladder, pancreas, spleen. Small splenule at the splenic hilum. ALIMENTARY TRACT: Negative for suspicious CT finding of the upper GI, small bowel, or appendix visualized medial and posterior to the cecum. No suspicious abnormality of the colon. Negative for ascites or free air. Small fat-containing indirect appearing LEFT inguinal hernia without inflammatory change. MESENTERIC: Unremarkable. ADRENAL / GENITOURINARY: Normal adrenal glands. Moderately atrophic kidneys. Arcuate vascular calcifications. Small renal cortical cysts. No suspicious focal renal lesions or hydronephrosis. Unremarkable nondilated ureters. Mild LEFT perinephric and periureteral inflammatory stranding. Unremarkable partially distended urinary bladder. Coarse calcifications at the prostate. Symmetric seminal vesicles. Pelvic phleboliths. RETROPERITONEAL: Negative for lymphadenopathy VASCULAR: Fusiform aneurysm of the abdominal aorta extending from level of the renal arteries through the bifurcation measuring up to 5.2 cm AP by 4.6 cm transverse diameter. At the level of the renal arteries the aorta measures up to 4.8 cm AP by 4.3 cm transverse. The aneurysm extends up to 14 cm cephalocaudal. Normal diameter common iliac arteries. Physiologic partial distention of the IVC. BONES: Negative for suspicious osseous lesions. SOFT TISSUE: Unremarkable. ABDOMEN PELVIS IMPRESSION: #. Mild LEFT perinephric and periureteral inflammatory stranding without visualized obstructing stone or lesion. Negative for hydronephrosis. Consider potential recent stone passage or LEFT pyelonephritis without associated hydronephrosis. Correlate with clinical and laboratory assessment. #. Negative for abdominal pelvic lymphadenopathy. #. Fusiform aneurysm of the abdominal aorta extending from the level of the renal arteries to the bifurcation measuring up to 5.2 cm maximum diameter.
--- NOTE | 2018-06-21 13:27 | PN ---
Progress Note - Progress Note Date of Service: 06/21/18 Note: Time spent on discharge 50 minutes, including exam of patient, discussion with patient, Dr. Albarado, Dr. Pena, nurse, Dr. Aguayo, review of EMR and preparation of discharge documents.
[2018-06-21 13:33] VITALS: BP 159/81
--- NOTE | 2018-06-21 17:14 | DS ---
DISCHARGE SUMMARY: DATE OF ADMISSION: DATE OF DISCHARGE: 06/21/18 HISTORY OF PRESENT ILLNESS: This 68-year-old man that presented with slurred speech and right-sided weakness. The history is detailed in the admission note. He has a prior history of TIA and/or stroke. He has multiple medical problems as detailed in the dictated admission note. CT scan in the emergency room showed left frontal lobe acute or subacute hematoma with mild regional mass effect. 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 The patient received both prothrombin complex concentrate and vitamin D 10 mg IV. He showed steady clinical improvement and was essentially at his baseline state by the time of discharge. Followup CT scan the second day showed no change from the first day. MRI of the brain without contrast showed a hematoma or a hemorrhagic mass with mild surrounding edema. There was encephalomalacia in the right posterior parietal and temporal lobes consistent with an old infarct. Dr. Gaming reviewed the films and felt there was some suspicion that this was a tumor that had hemorrhage. I note the patient's INR on presentation in the emergency room was 1.91. The patient's creatinine was too high to allow for an MRI with contrast or a CT scan with contrast. I am reducing his diuretic dose. His GFR increased over 30 mL per minute. It may be possible to give him contrast. He did have a CT scan of the chest, abdomen, and pelvis with oral contrast only. This did not show any significant findings. His A1c was 8.6% on 06/18/18. On the day of discharge, his creatinine was 2.95 with an estimated GFR of 21.3. He had 3 troponin levels which ranged from 0.09 to 0.11, the last one being 0.10. FINAL DIAGNOSES: 1. Hemorrhage in left frontal lobe, possible hemorrhagic tumor. 2. Atrial fibrillation with prolonged RR intervals. 3. Diabetes. 4. Coronary artery disease. 5. Obstructive sleep apnea. 6. Hypertension. 7. Chronic kidney disease. 8. Abdominal aortic aneurysm 5.2 cm. DISCHARGE MEDICATIONS: Medications discontinued: Carvedilol, warfarin, and aspirin, and metolazone have been discontinued. Depending on the clinical situation, it might be possible to start aspirin and/or warfarin in about a month. New medications: 1. Levetiracetam 500 mg b.i.d. Continued medications: 1. Hydralazine 25 mg b.i.d. 2. Ezetimibe 10 mg daily 3. Vitamin D3 2000 units daily. 4. Fenofibrate 48 mg daily. 5. Aspirin 81 mg daily. 6. Atorvastatin 40 mg daily. 7. Isosorbide mononitrate 30 mg daily. 8. Sitagliptin 50 mg daily. 9. Furosemide 40 mg reduced to once daily. 9. Glargine insulin 35 units daily. DISCHARGE FOLLOWUP: The patient will see Dr. Gaming in about [address] Albarado in 2 to 3 weeks. DISCHARGE CONDITION: Good. DISCHARGE DISPOSITION: Home. [id number]/[facility] #: [id number] MTDD
== END 2018-06-21 15:00 | disposition home or self-care (01) | DRG 64 ==
LOC: ED 15:40 → ICU 17:55 → MEDTELE 06-20 00:54
PROVIDERS: ADMIT Hospitalist; ATTEND Internal Medicine
PROC: 30283B1 Transfusion of Nonautologous 4-Factor Prothrombin Complex Concentrate into Vein, Percutaneous Approach (ICD-10-PCS; principal; 2018-06-18)
DX: I61.1 Nontraumatic intracerebral hemorrhage in hemisphere, cortical (principal); G93.6 Cerebral edema; I48.92 Unspecified atrial flutter; I42.9 Cardiomyopathy, unspecified; I50.42 Chronic combined systolic (congestive) and diastolic (congestive) heart failure; I13.0 Hypertensive heart and chronic kidney disease with heart failure and stage 1 through stage 4 chronic kidney disease, or unspecified chronic kidney disease; G81.91 Hemiplegia, unspecified affecting right dominant side; R47.81 Slurred speech; R40.2362 Coma scale, best motor response, obeys commands, at arrival to emergency department; R40.2142 Coma scale, eyes open, spontaneous, at arrival to emergency department; R40.2252 Coma scale, best verbal response, oriented, at arrival to emergency department; R29.701 NIHSS score 1; E11.22 Type 2 diabetes mellitus with diabetic chronic kidney disease; N18.3 Chronic kidney disease, stage 3 (moderate); E11.51 Type 2 diabetes mellitus with diabetic peripheral angiopathy without gangrene; I48.91 Unspecified atrial fibrillation; I25.10 Atherosclerotic heart disease of native coronary artery without angina pectoris; E78.5 Hyperlipidemia, unspecified; G47.33 Obstructive sleep apnea (adult) (pediatric); I71.4 Abdominal aortic aneurysm, without rupture; I27.20 Pulmonary hypertension, unspecified; R74.8 Abnormal levels of other serum enzymes; F11.90 Opioid use, unspecified, uncomplicated; I65.21 Occlusion and stenosis of right carotid artery; F17.210 Nicotine dependence, cigarettes, uncomplicated; I66.01 Occlusion and stenosis of right middle cerebral artery; I65.01 Occlusion and stenosis of right vertebral artery; G31.9 Degenerative disease of nervous system, unspecified; D49.6 Neoplasm of unspecified behavior of brain; Z79.82 Long term (current) use of aspirin; Z82.49 Family history of ischemic heart disease and other diseases of the circulatory system; I25.2 Old myocardial infarction; Z90.6 Acquired absence of other parts of urinary tract; Z85.51 Personal history of malignant neoplasm of bladder; Z99.81 Dependence on supplemental oxygen; Z83.3 Family history of diabetes mellitus; Z72.89 Other problems related to lifestyle; Z79.4 Long term (current) use of insulin; Z86.73 Personal history of transient ischemic attack (TIA), and cerebral infarction without residual deficits
CPT/HCPCS: 36415; 70450; 70544; 70551; 71045; 71250; 74176; 80048; 80053; 80061; 82607; 82728; 83036; 83540; 83550; 83605; 84484; 85025; 85610; 85730; 86850; 86900; 86901; 87641; 93005; 99285; A9270-GY; C9132; G8984-GP-CJ; G8985-GP-CH; G8987-GO-CH; G8988-GO-CH; G8989-GO-CH; J3430